=== PATIENT | female | born 1955 | race Caucasian/White ===

== ENCOUNTER 2019-02-24 07:47 | Day surgery (SDC) | payer BC ==
[~2019-02-24] VITALS: Ht 154.9 cm; Wt 58.2 kg
[2019-02-24] VITALS (9 sets, daily range): BP systolic 91–156; BP diastolic 56–88
[2019-02-24] MEDS ORDERED: normal saline 1,000 ML IV SCH (08:15)
[2019-02-24] MEDS ORDERED: diphenhydrAMINE 25mg capsule PO PRN (08:15)
[2019-02-24] MEDS ORDERED: MELO-100 PO (08:40)
[2019-02-24] MEDS ORDERED: ALBU8.5H8 INH (08:40)
[2019-02-24] MEDS ORDERED: OMEG-134 PO (08:40)
[2019-02-24] MEDS ORDERED: SYN0.088T PO (08:40)
[2019-02-24] MEDS ORDERED: fluticasone nasal NAS (08:40)
[2019-02-24] MEDS ORDERED: LACT1CAP65 PO (08:40)
[2019-02-24] MEDS ORDERED: TURM500C4 PO (08:40)
[2019-02-24] MEDS ORDERED: CETI-102 PO (08:40)
[2019-02-24] MEDS ORDERED: CALC1TAB PO (08:40)
[2019-02-24] MEDS ORDERED: OMEP20TA23 PO (08:40)
[2019-02-24 08:41] LABS: BASOPHILS % (AUTO) 0.7 % (0-1); EOSINOPHILS # (AUTO) 0.1 X10'3 (0-0.9); EOSINOPHILS % (AUTO) 0.9 % (0-6); HEMATOCRIT 45.6 % (35.0-45.0); HEMOGLOBIN 15.7 g/dl (12.0-16.0); LYMPHOCYTES # (AUTO) 2.4 X10'3 (1.1-4.8); LYMPHOCYTES % (AUTO) 38.8 % (21-51); MEAN CORPUSCULAR HEMOGLOBIN 29.2 PG (27.0-31.0); MEAN CORPUSCULAR HGB CONC 34.4 g/dL (33.0-36.5); MEAN PLATELET VOLUME 7.2 FL (7.4-10.4); MONOCYTES # (AUTO) 0.3 X10'3 (0-0.9); MONOCYTES % (AUTO) 4.5 % (2-12); NEUTROPHILS # (AUTO) 3.5 X10'3 (1.8-7.7); NEUTROPHILS % (AUTO) 55.1 % (42-75); PLATELET COUNT 279 X10'3 (140-440); RED BLOOD COUNT 5.37 X10'6 (4.20-5.60); WHITE BLOOD COUNT 6.3 X10'3 (4.5-11.0)
[2019-02-24 08:50] LABS: ALBUMIN 4.8 G/DL (3.4-5.0); ANION GAP 8 (8-16); BLOOD UREA NITROGEN 20 MG/DL (7-18); BUN/CREATININE RATIO 19.8 (6.6-38.0); CALCIUM 9.8 MG/DL (8.5-10.1); CHLORIDE 104 MMOL/L (99-107); CREATININE 1.01 MG/DL (0.40-0.90); GLUCOSE 95 MG/DL (70-104); MAGNESIUM 2.1 MG/DL (1.5-2.4); POTASSIUM 3.4 MMOL/L (3.5-5.1); SODIUM 140 MMOL/L (135-145); eGFR 56 ML/MIN
[2019-02-24] MEDS ORDERED: iohexol 350MG/ML 100ml bottle IV ONE (09:35)
[2019-02-24] MEDS ORDERED: midazolam 2 mg/2 ml injection ONE ×2 (09:35→09:48)
[2019-02-24] MEDS ORDERED: fentaNYL/PF 50MCG/1 ML 2ML syringe ONE (09:35)
[2019-02-24] MEDS ORDERED: LIDOcaine 1% (10mg/ml)w/preservative injection 20ml MDV ONE (09:35)
[2019-02-24] MEDS ORDERED: iohexol 350 MG/ML 50ML vial IV ONE (09:35)
[2019-02-24] MEDS ORDERED: proCHLORperazine 10 MG/2 ml inj ONE (09:54)
[2019-02-24] MEDS ORDERED: normal saline 1000ml 1,000 ML IV SCH (11:20)
[2019-02-24] MEDS ORDERED: ondansetron/PF 4mg/2ml inj IV PRN (11:20)
[2019-02-24] MEDS ORDERED: HYDROcodone/acetaminophen 10/325mg tab PO PRN (11:20)
[2019-02-24] MEDS ORDERED: HYDROcodone/acetaminophen 5mg/325mg tablet PO PRN (11:20)
[2019-02-24] MEDS ORDERED: proCHLORperazine 10 MG/2 ml inj IV PRN (11:20)
== END 2019-02-24 13:30 | disposition home or self-care (01) ==
LOC: SSTAY O 07:47
PROVIDERS: ATTEND Internal Medicine Cardiovascular Disease
DX: R06.09 Other forms of dyspnea (principal); E78.5 Hyperlipidemia, unspecified; J45.909 Unspecified asthma, uncomplicated; E03.9 Hypothyroidism, unspecified; K21.9 Gastro-esophageal reflux disease without esophagitis; Z98.890 Other specified postprocedural states; Z88.5 Allergy status to narcotic agent; Z79.899 Other long term (current) drug therapy; Z88.8 Allergy status to other drugs, medicaments and biological substances
CPT/HCPCS: 36415; 80048; 83735; 85025; 85610; 93005; 93460; 99152; 99153; C1769; C1894; J0780; J1644; J2001; J2250; J3010; J7030; Q0163; Q9967; A4620; A6258; C1760